=== PATIENT | male | born 1965 | race Caucasian/White ===

== ENCOUNTER 2017-02-12 15:26 | Inpatient (IN) | payer MEDICAID ==
[2017-02-12 15:26] VITALS: BMI 30.4
--- NOTE | 2017-02-12 16:22 | C.PDOC ---
History Of Present Illness 51M c/o depression and SI for the last week. he reports plan to either "hang myself" or "take pills." he says he has attempted OD before with xanax. he also sniffs heroin daily for last 10 years. denies etoh. denies any other complaints. Time Seen by Provider: 02/12/17 16:11 Chief Complaint (Nursing): Psychiatric Evaluation Past Medical History Vital Signs: Last Vital Signs Temp 98.3 F 02/13/17 07:38 Pulse 60 02/13/17 15:33 Resp 18 02/13/17 07:38 BP 110/70 02/13/17 15:33 Pulse Ox 98 02/12/17 18:58 - Medical History PMH: Anxiety, Depression Family History: States: Unknown Family Hx - Social History Hx Tobacco Use: Yes Hx Alcohol Use: No Hx Substance Use: Yes - Immunization History Hx Tetanus Toxoid Vaccination: No Hx Influenza Vaccination: No Hx Pneumococcal Vaccination: No Review Of Systems Except As Marked, All Systems Reviewed And Found Negative. Constitutional: Negative for: Fever, Chills Eyes: Negative for: Vision Change Cardiovascular: Negative for: Chest Pain Respiratory: Negative for: Cough, Shortness of Breath Gastrointestinal: Negative for: Nausea, Vomiting, Abdominal Pain, Diarrhea Neurological: Negative for: Weakness, Numbness, Altered Mental Status, Headache Psych: Positive for: Depression, Suicidal ideation Physical Exam - Physical Exam Appears: Non-toxic, No Acute Distress Skin: Warm, Dry Head: Atraumatic Nose: No Epistaxis Oral Mucosa: Moist Tongue: No Swelling Neck: Normal ROM Cardiovascular: Rhythm Regular Respiratory: No Decreased Breath Sounds, No Accessory Muscle Use Gastrointestinal/Abdominal: Soft, No Tenderness Neurological/Psych: Oriented x3, Other (no focal deficits) ED Course And Treatment - Laboratory Results Result Diagrams: 02/12/17 16:44 02/12/17 17:10 ECG: Interpreted By Me, Viewed By Me ECG Rhythm: Sinus Bradycardia ECG Interpretation: No Acute Changes Rate From EC O2 Sat by Pulse Oximetry: 95 Disposition - Disposition Disposition: HOSPITALIZED Disposition Time: 18:12 Condition: STABLE - Clinical Impression Clinical Impression: Depressive disorder, Severe opioid dependence
[2017-02-12 17:01] LABS: BASO # 0.1 K/uL (0.0-0.2); BASO % 0.7 % (0.0-2.0); EOS # 0.1 K/uL (0.0-0.7); EOS % 1.4 % (0.0-4.0); HEMATOCRIT 41.2 % (35.0-51.0); LYMPH % 19.5 % (20.0-40.0); MEAN CELL VOLUME 90.2 fL (80.0-94.0); MEAN CORPUSCULAR HEMOGLOBIN 29.5 pg (27.0-31.0); MEAN CORPUSCULAR HGB CONC 32.7 g/dL (33.0-37.0); MEAN PLATELET VOLUME 7.1 fL (7.2-11.7); MONO # 0.5 K/uL (0.0-0.8); MONO % 5.3 % (0.0-10.0); RED CELL DISTRIBUTION WIDTH 13.5 % (11.5-14.5); WHITE BLOOD COUNT 10.1 K/uL (4.8-10.8)
[2017-02-12 17:03] LABS: CHLORIDE 97 mmol/L (98-107)
[2017-02-12 17:04] LABS: POTASSIUM 3.9 mmol/L (3.6-5.2); SODIUM 134 mmol/L (132-148)
[2017-02-12 17:06] LABS: BILIRUBIN,TOTAL 0.4 mg/dL (0.2-1.3); CARBON DIOXIDE 24 mmol/L (22-30); GFR AFRICAN-AMERICAN > 60
[2017-02-12 17:07] LABS: ALB/GLOB RATIO 1.3 (1.0-2.1); ALCOHOL SERUM < 10 mg/dl (0-10); ALKALINE PHOSPHATASE 67 U/L (38-126); ALT/SGPT 25 U/L (21-72); AST/SGOT 26 U/L (17-59); BLOOD UREA NITROGEN 14 mg/dL (9-20); CALCIUM 8.5 mg/dl (8.6-10.4); GLUCOSE,RANDOM 96 mg/dL (75-110); TOTAL PROTEIN 6.7 g/dL (6.3-8.3)
[2017-02-12 17:35] LABS: RBC URINE 12 /hpf (0-3); URINE BACTERIA RARE (<OCC); URINE BILIRUBIN NEGATIVE (NEGATIVE); URINE BLOOD 1+ (NEGATIVE); URINE COLOR Yellow (YELLOW); URINE GLUCOSE (UA) NORMAL (Normal); URINE KETONE NEGATIVE (NEGATIVE); URINE LEUKOCYTE ESTERASE NEG Leu/uL (Negative); URINE PROTEIN NEGATIVE (NEGATIVE); WBC URINE 1 /hpf (0-5)
[2017-02-12] MEDS ORDERED: Aluminum Hydroxide/Magnesium Hydroxide Susp (30 mL) PO PRN (19:38)
[2017-02-13 21:05] VITALS: O2SAT 95
[2017-02-14] MEDS: Hydrocortisone 1% Cream (30 GM) TOP SCH ×2 (17:35→18:45)
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
--- NOTE | 2017-02-15 02:33 | PCM.PYCHPN ---
Psychiatric Progress Note - Psychiatric Progress Note Patient Chief Complaint: I AM DEPRESSED AND I WANT TO STOP USING Problems Identified/Issues Discussed: PAWS ADHERENCE TO MEDS AND AFTERCARE Medical Problems: NOTHING ACUTE Diagnostic Results: REVIEWED DSM 5 Symptoms Update: HOPELESSNESS HELPLESSNESS Medication Change: Yes (VALIUM TAPER) Medical Record Reviewed: Yes Mental Status Examination - Cognitive Function Orientation: Person, Place, Situation, Time Memory: Intact Attention: WNL Concentration: WNL Association: WNL Fund of Knowledge: WNL - Mood Mood: Anxious - Affect Affect: Constricted - Speech Speech: Appropriate - Formal Thought Process Formal Thought Process: No Impairment - Suicidal Ideation Suicidal Ideation: No - Homicidal Ideation Homicidal Ideation: No Goal/Treatment Plan - Goal/Treatment Plan Progress Toward Problem(s) and Goals/Treatment Plan: MAJOR DEPRESSIVE DISORDER OPIATE USE DISORDER OPIATE WITHDRAWAL SEDATIVE-HYPNOTIC USE DISORDER SEDATIVE HYPNOTIC WITHDRAWAL MDD ZOLOFT CBT AR GROUPS SUPPORTIVE PSYCHOTHERAPY OPIATE USE DISORDER CBT AR PSYCHOEDUCATION OPIATE WITHDRAWAL METHADONE SEDATIVE HYPNOTIC USE DISORDER CBT AR SUPPORTIVE PSYCHOTHERAPY SEDATIVE-HYPNOTIC WITHDRAWAL VALIUM Estimated Date of D/C: 02/20/17 - Smoking Cessation Smoking Cessation Initiated: No
[2017-02-15] MEDS: Hydrocortisone 1% Cream (30 GM) TOP SCH ×2 (10:31→17:05)
--- NOTE | 2017-02-15 23:08 | PCM.PYCHPN ---
Psychiatric Progress Note - Psychiatric Progress Note Patient seen today, length of contact: 16 min Patient Chief Complaint: "not well" Problems Identified/Issues Discussed: The patient is seen, chart reviewed and case discussed. Support and psychoeducation given ID used and he agreed to attend either a rehabilitation or methadone maintenance program. Treatment plan discussed. He denies feeling suicidal but feels depressed and irate. Anxiety is also an issue Anxiety management discussed. Medications discussed and will complete Valium detox which was probably not as needed. Medication Change: Yes Medical Record Reviewed: Yes Mental Status Examination - Cognitive Function Orientation: Person, Place, Situation, Time Memory: Intact Attention: WNL Concentration: WNL Association: WNL Fund of Knowledge: WNL - Mood Mood: Anxious - Affect Affect: Constricted - Speech Speech: Appropriate - Formal Thought Process Formal Thought Process: No Impairment - Suicidal Ideation Suicidal Ideation: No - Homicidal Ideation Homicidal Ideation: No Goal/Treatment Plan - Goal/Treatment Plan Need for Continued Stay: Discharge may exacerbated symptoms, Severe functional impairment Progress Toward Problem(s) and Goals/Treatment Plan: Refer to methadone maintenance or rehabilitation Continue current medications Support and psychoeducation Attend groups and activities Symptom management, i.e. anxiety and depression Is needed medications Estimated Date of D/C: 02/19/17 - Smoking Cessation Smoking Cessation Initiated: Yes
[2017-02-16] MEDS: Hydrocortisone 1% Cream (30 GM) TOP SCH ×2 (10:02→18:10)
--- NOTE | 2017-02-16 13:28 | PCM.PYCHPN ---
Psychiatric Progress Note - Psychiatric Progress Note Patient seen today, length of contact: 16 min Patient Chief Complaint: "Anxious" Problems Identified/Issues Discussed: The patient is seen, chart reviewed and case discussed. Support and psychoeducation given [facility] used again He is worried that he has no ID, except for shelter ID, and maybe [facility] will take him as he had been there before. Not suicidal Wants to leave tomorrow and attend on Wednesday, fears he may relapse if he stay off on Medication Change: Yes (valium is ending) Medical Record Reviewed: Yes Mental Status Examination - Cognitive Function Orientation: Person, Place, Situation, Time Memory: Intact Attention: WNL Concentration: WNL Association: WNL Fund of Knowledge: WNL - Mood Mood: Anxious - Affect Affect: Constricted - Speech Speech: Appropriate - Formal Thought Process Formal Thought Process: No Impairment - Suicidal Ideation Suicidal Ideation: No - Homicidal Ideation Homicidal Ideation: No Goal/Treatment Plan - Goal/Treatment Plan Need for Continued Stay: Discharge may exacerbated symptoms, Severe functional impairment Progress Toward Problem(s) and Goals/Treatment Plan: Refer to methadone maintenance at [facility] Continue current medications but increase zoloft Support and psychoeducation Attend groups and activities Symptom management, i.e. anxiety and depression As needed medications Estimated Date of D/C: 02/18/17 - Smoking Cessation Smoking Cessation Initiated: Yes
[2017-02-16 14:41] VITALS: RESP 20
[2017-02-17] MEDS: Hydrocortisone 1% Cream (30 GM) TOP SCH ×2 (10:35→17:43)
--- NOTE | 2017-02-17 12:11 | PCM.PYCHPN ---
Psychiatric Progress Note - Psychiatric Progress Note Patient seen today, length of contact: 15 min Patient Chief Complaint: "I still have anxiety" Problems Identified/Issues Discussed: The patient is seen, chart reviewed and case discussed. IA, and supportive tx provided Improving but has anxiety - Mgt discussed After care discussed No SEs from meds Medication Change: Yes (valium is ending) Medical Record Reviewed: Yes Mental Status Examination - Cognitive Function Orientation: Person, Place, Situation, Time Memory: Intact Attention: WNL Concentration: WNL Association: WNL Fund of Knowledge: WNL - Mood Mood: Anxious - Affect Affect: Constricted - Speech Speech: Appropriate - Formal Thought Process Formal Thought Process: No Impairment - Suicidal Ideation Suicidal Ideation: No - Homicidal Ideation Homicidal Ideation: No Goal/Treatment Plan - Goal/Treatment Plan Need for Continued Stay: Discharge may exacerbated symptoms, Severe functional impairment Progress Toward Problem(s) and Goals/Treatment Plan: Refer to methadone maintenance at [facility] Continue current medications but increase zoloft to 100 mg Support and psychoeducation Attend groups and activities Symptom management, i.e. anxiety and depression As needed medications Estimated Date of D/C: 02/18/17
[2017-02-18 09:14] VITALS: BP 131/83; PULSE 60; TEMP 97.2
[2017-02-18] MEDS: Hydrocortisone 1% Cream (30 GM) TOP SCH (09:36)
--- NOTE | 2017-02-18 09:52 | PCM.PYCHDC ---
Mental Status Examination - Mental Status Examination Orientation: Person, Place, Situation, Time Memory: Intact Mood: Anxious Affect: Constricted Speech: Appropriate Attention: WNL Concentration: WNL Association: WNL Fund of Knowledge: WNL Formal Thought Process: No Impairment Suicidal Ideation: No Current Homicidal Ideation?: No Discharge Summary - Discharge Note Reason for Hospitalization: Depression, and heroin abuse Consultations:: List each consultation separately and include: 1. Reason for request. 2. Findings. 3. Follow-up Summary of Hospital Course include:: 1. Description of specific treatment plan utilized for patients during their course of treatmen. 2. Summarize the time- course for resolution of acute symptoms and/or regressed behaviors. 3. Describe issues identified and worked on during hospitalization. 4. Describe medication utilized. 5. Describe medical problems identified and treated. 6. Reassessment of suicide risk Summary of Hospital Course: Hospital course: The pt was admitted and started on treatment with psychotherapy, support, psychoeducation and medications. AK and CBT used. The pt attended groups and activities, as well as milieu therapy. All the risks and benefits of medications are discussed and the patient understood and agreed. After care discussed with the patient. he had lost his ID but did an intake at [facility] prior to that so he will try there first. If not [facility] He was anxious and med-seeking, somewhat motivated (AK used) and isolative. - Final Diagnosis (DSM 5) Condition upon Discharge: STABLE DSM 5: Major depression Opioid withdrawal Opioid use severe Disposition: HOME/ ROUTINE Follow-up Treatment Plan: Continue below medications after discharge. Follow after care plan as discussed at [facility] MMTP - Back up: [facility] IOP and NA Use relapse prevention skills Return to ER or call 911 if suicidal, homicidal or symptoms relapse. Stay away from stress, alcohol and drugs. Prescriptions/Medication Reconciliation: Gabapentin [Neurontin] 300 mg PO TID #90 cap Sertraline [Zoloft] 100 mg PO DAILY #30 tab - Smoking Cessation Smoking Cessation Medication prescribed: No - Antipsychotic Medications Pt discharged on 2 or more routine antipsychotic medications: No
--- NOTE | 2017-02-20 06:37 | CARD ---
APPROVED REPORT EKG Measurement Heart [id number] IN [id number] <Conclusion> Sinus bradycardia Otherwise normal ECG
== END 2017-02-18 12:45 | disposition home or self-care (01) | DRG 745 ==
LOC: C.ER 15:26 → C.5E 18:12
PROVIDERS: ADMIT Psychiatry & Neurology Psychiatry; ATTEND Psychiatry & Neurology Psychiatry
PROC: GZ56ZZZ Individual Psychotherapy, Supportive (ICD-10-PCS; principal; 2017-02-12)
PROC: HZ52ZZZ Individual Psychotherapy for Substance Abuse Treatment, Cognitive-Behavioral (ICD-10-PCS; 2017-02-12)
PROC: HZ56ZZZ Individual Psychotherapy for Substance Abuse Treatment, Psychoeducation (ICD-10-PCS; 2017-02-12)
PROC: HZ2ZZZZ Detoxification Services for Substance Abuse Treatment (ICD-10-PCS; 2017-02-12)
DX: F11.23 Opioid dependence with withdrawal (principal); F32.9 Major depressive disorder, single episode, unspecified; F41.9 Anxiety disorder, unspecified

== ENCOUNTER 2017-08-09 12:37 | Inpatient (IN) | payer MEDICAID ==
[2017-08-09 12:37] VITALS: BMI 28.1
[2017-08-09 13:43] LABS: BASO % 0.4 % (0.0-2.0); EOS # 0.2 K/uL (0.0-0.7); HEMATOCRIT 41.1 % (35.0-51.0); LYMPH # 1.1 K/uL (1.0-4.3); MEAN CELL VOLUME 91.7 fL (80.0-94.0); MEAN CORPUSCULAR HEMOGLOBIN 30.7 pg (27.0-31.0); MEAN CORPUSCULAR HGB CONC 33.5 g/dL (33.0-37.0); MONO # 0.4 K/uL (0.0-0.8); MONO % 4.6 % (0.0-10.0); RED CELL DISTRIBUTION WIDTH 13.5 % (11.5-14.5); WHITE BLOOD COUNT 9.6 K/uL (4.8-10.8)
[2017-08-09 13:53] LABS: RBC URINE 2 /hpf (0-3); URINE BILIRUBIN NEGATIVE (NEGATIVE); URINE BLOOD 2+ (NEGATIVE); URINE COLOR Yellow (YELLOW); URINE GLUCOSE (UA) NORMAL (Normal); URINE KETONE NEGATIVE (NEGATIVE); URINE LEUKOCYTE ESTERASE 1+ Leu/uL (Negative); URINE PROTEIN NEGATIVE (NEGATIVE); URINE UROBILINOGEN NORMAL mg/dL (0.2-1.0); WBC URINE 2 /hpf (0-5)
[2017-08-09 14:00] LABS: ALB/GLOB RATIO 1.3 (1.0-2.1); ALCOHOL SERUM < 10 mg/dl (0-10); ALKALINE PHOSPHATASE 69 U/L (38-126); ALT/SGPT 25 U/L (21-72); AST/SGOT 22 U/L (17-59); BILIRUBIN,TOTAL 0.7 mg/dL (0.2-1.3); BLOOD UREA NITROGEN 18 mg/dL (9-20); CALCIUM 9.3 mg/dl (8.6-10.4); CARBON DIOXIDE 25 mmol/L (22-30); CHLORIDE 102 mmol/L (98-107); GFR AFRICAN-AMERICAN > 60; GLUCOSE,RANDOM 163 mg/dL (75-110); POTASSIUM 3.9 mmol/L (3.6-5.2); SODIUM 139 mmol/L (132-148); TOTAL PROTEIN 6.9 g/dL (6.3-8.3)
--- NOTE | 2017-08-09 15:16 | C.PDOC ---
History Of Present Illness 51 y/o male presents to ED with complaints of feeling depressed and suicidal ideation. Patient has history of seizures with withdrawal. Admits to heroin and cocaine use. No IV drug use. No other complaints at this time. Time Seen by Provider: 08/09/17 13:10 Chief Complaint (Nursing): Psychiatric Evaluation History Per: Patient History/Exam Limitations: no limitations Onset/Duration Of Symptoms: Days Current Symptoms Are (Timing): Still Present Suicide/Self Injury Attempted (Context): None Past Medical History Reviewed: Historical Data, Nursing Documentation, Vital Signs Vital Signs: Last Vital Signs Temp 98.1 F 08/09/17 14:55 Pulse 61 08/09/17 14:55 Resp 18 08/09/17 14:55 BP 112/75 08/09/17 14:55 Pulse Ox 99 08/09/17 15:22 - Medical History PMH: Anxiety, Depression Surgical History: No Surg Hx - [facility] Procedures DETOXIFICATION SERVICES FOR SUBSTANCE ABUSE TREATMENT (02/12/17) INDIV PSYCHOTHERAPY FOR SUBSTANCE ABUSE, COGNITIV BEHAVIORAL (02/12/17) INDIV PSYCHOTHERAPY FOR SUBSTANCE ABUSE, PSYCHOEDUCATION (02/12/17) INDIVIDUAL PSYCHOTHERAPY, SUPPORTIVE (02/12/17) Family History: States: Unknown Family Hx - Social History Hx Tobacco Use: Yes Hx Alcohol Use: Yes Hx Substance Use: Yes - Immunization History Hx Tetanus Toxoid Vaccination: No Hx Influenza Vaccination: No Hx Pneumococcal Vaccination: No Review Of Systems Except As Marked, All Systems Reviewed And Found Negative. Constitutional: Negative for: Fever, Chills Cardiovascular: Negative for: Chest Pain Respiratory: Negative for: Shortness of Breath Gastrointestinal: Negative for: Nausea, Vomiting Psych: Positive for: Depression, Suicidal ideation. Negative for: Anxiety Physical Exam - Physical Exam Appears: Non-toxic, No Acute Distress Skin: Normal Color Head: Atraumatic Eye(s): bilateral: Normal Inspection, EOMI Oral Mucosa: Moist Neck: Normal ROM, Supple Chest: Symmetrical Cardiovascular: Rhythm Regular Respiratory: Normal Breath Sounds, No Rales, No Rhonchi Gastrointestinal/Abdominal: Soft, No Tenderness Neurological/Psych: Oriented x3, Normal Speech ED Course And Treatment - Laboratory Results Result Diagrams: 08/09/17 13:32 08/09/17 13:32 O2 Sat by Pulse Oximetry: 99 (RA) Pulse Ox Interpretation: Normal Progress Note: Upon Crisis Evaluation, Patient will be admitted to [facility] for Opioid abuse and depression. Disposition - Disposition Disposition: HOSPITALIZED Disposition Time: 15:00 Condition: STABLE - Clinical Impression Clinical Impression: Depressive disorder, Drug abuse - PA / CLINICAL REVIEW NURSE / Resident Statement MD/DO has reviewed & agrees with the documentation as recorded. - Scribe Statement The provider has reviewed the documentation as recorded by the Lailaibandrea Woo All medical record entries made by the Mook were at my direction and personally dictated by me. I have reviewed the chart and agree that the record accurately reflects my personal performance of the history, physical exam, medical decision making, and the department course for this patient. I have also personally directed, reviewed, and agree with the discharge instructions and disposition.
[2017-08-09] MEDS ORDERED: Aluminum Hydroxide/Magnesium Hydroxide Susp (30 mL) PO PRN (15:48)
--- NOTE | 2017-08-09 18:23 | PCM.BM ---
<Sadaf Domingo - Last Filed: 08/09/17 18:20> Treatment Plan Problems - Problems identified on initial assessmt Depression Date Initiated: 08/09/17 Time Initiated: 17:00 Assessment reference: NA Status: Active Substance Abuse Date Initiated: 08/09/17 Time Initiated: 17:00 Assessment reference: NA Status: Active Treatment assets and liabiliti Patient Assests: adapts well, cooperative, ADL independent, physically healthy, negotiates basic needs, cognitively intact Patient Liabilities: poor support system, substance abuse (Opiates, Xanax) - Milieu Protocol Maintain good personal hygiene: every shift Encourage regular showers, every shift Remind patient to perform daily oral care, other Assist patient to perform ADL's (Self) Conduct patient checks and document Observation sheet: Q15 minutes (Safety) Maintain personal safety: every shift Educate patient to report safety concerns to staff, every shift Monitor environment for contraband/sharps Medication safety: Monitor for expected outcome, potential side effects: every shift, Assess barriers to learning: every shift, Assess readiness for medication education: every shift <Kitty Fountain - Last Filed: 08/11/17 11:34> - Diagnosis (1) Depressive disorder Status: Acute Interventions: 08/11/17 11:34 * Assess/adjust medications daily and /or as needed * See patient on an individual basis 7x/week to assess level of manic behaviors and stability * Discuss risks, benefits, side effects and alternatives of medications * (2) Opioid use disorder, severe, dependence Status: Acute Interventions: 08/11/17 11:34 * Assess 7x/week regarding severity of withdrawal * Educate regarding risks, benefits, side effects and alternatives of medications * Use Motivational Interviewing for abstinence * Use CBT for relapse prevention * Medication management for withdrawal symptoms * Encourage medication assisted treatment * <Nadira Mckeon - Last Filed: 08/11/17 11:39> Family Contact Family involvement: Famliy/SO not involved - Goals for Treatment Patient goals for treatment: "I might want to go to rehab, not sure." Discharge/Continuing Care - Education Needs Education Needs: Patient Medication, Patient Coping Skills, Patient Placement options, Patient Community resources - Discharge Discharge Criteria: Tolerates medication w/o severe side effects, No longer exhibiting s/s of withdrawal Discharge to:: Substance Abuse Rehab - Treatment Team Participation Discussed with Family/SO: No Was Patient/Family/SO present at Treatment Team Meeting: Yes
--- NOTE | 2017-08-10 10:05 | PCM.PSYCH ---
Initial Psychiatric Evaluation - Initial Psychiatric Evaluation Type of Admission: Voluntary Legal Status: Capacity Chief Complaint (in patient's own words): I was feeling depressed and suicidal History of Present Illness and Precipitating Events: Pt is a 51 years old male who is currently homeless, and unemployed presented in the ED complaining of mood disturbances, daily living problems and suicidal ideations. Patient denies any history of any inpatient psychiatric hospitalizations and denies any history of follow-up with any psychiatrist. Patient reports a long history of abusing opiate and benzodiazepine. Patient reports history of sniffing more than 15 bags of heroin and abusing 2-4 mg of Xanax on a daily. Yesterday he abused 15 bags of heroin along with 2 mg of Xanax, became increasingly depressed and developed suicidal ideation, so came to the hospital to get help. Patient reports of depressed, and irritable mood. Reports feelings of hopelessness and helplessness and poor appetite. However he denies any auditory hallucinations, visual hallucinations or any delusions. Patient also reports withdrawal symptoms including nausea, vomiting, abdominal pain. He also reports auditory hallucinations, that someone is calling him names and persecutory delusions that someone is following him. Past medical history none reported Current Medications: Active Medications Generic Name Dose Route Start Last Admin Trade Name Freq PRN Reason Stop Dose Admin Acetaminophen 650 mg 08/09/17 15:45 Tylenol 325mg Tab PO Q6 PRN Fever >100.4 F Al Hydrox/Mg Hydrox/Simethicone 30 ml 08/09/17 15:48 Maalox 30 Ml PO TID PRN Indigestion / Heartburn Clonidine HCl 0.1 mg 08/09/17 15:48 Catapres PO Q8 PRN COWS Score More or Equal to 5 Dicyclomine HCl 10 mg 08/09/17 15:45 Bentyl PO Q6 PRN Muscle spasm Gabapentin 300 mg 08/09/17 18:00 08/09/17 17:44 Neurontin PO Not Given TID ROGER Loperamide HCl 2 mg 08/09/17 15:48 Imodium PO Q8 PRN Diarrhea Methadone HCl 15 mg 08/10/17 09:30 Methadone PO 08/14/17 09:29 Q24H ROGER Taper Ondansetron HCl 4 mg 08/09/17 15:48 Zofran Tab PO Q8 PRN Nausea/Vomiting Pneumococcal Polyvalent Vaccine 0.5 ml 08/12/17 10:00 Pneumovax 23 Vaccine IM 08/12/17 10:01 .ONCE ONE Sertraline HCl 25 mg 08/10/17 10:00 Zoloft PO DAILY ROGER Trazodone HCl 50 mg 08/09/17 22:00 08/09/17 22:50 Desyrel PO Not Given HS ROGER Trazodone HCl 50 mg 08/09/17 22:29 Desyrel PO HS PRN Insomnia Past Psychiatric History - Past Psychiatric History Previous Treatment History: Inpatient Pertinent Medical Hx (Current Medical&Sleep Prob, Allergies): Allergies Allergy/AdvReac Type Severity Reaction Status Date / Time No Known Allergies Allergy Verified 08/09/17 13:02 Gabapentin [Neurontin] 300 mg PO TID #90 cap 02/18/17 Sertraline [Zoloft] 100 mg PO DAILY #30 tab 02/18/17 Review of Systems - Review of Systems All systems: reviewed and no additional remarkable complaints except - Psychiatric Psychiatric: Anxiety, Auditory Hallucinations, Depression, Hopelessness, Irritability, Suicidal Ideation Mental Status Examination - Personal Presentation Personal Presentation: Looks stated age - Affect Affect: Constricted, Depressed - Motor Activity Motor Activity: Calm - Reliability in Providing Information Reliability in Providing Information: Good - Speech Speech: Organized - Mood Mood: Depressed, Anxious - Formal Thought Process Formal Thought Process: Hallucinations, Delusions - Hallucinations/Delusions Hallucinations: Auditory Delusions: Persecution - Obsessions/Compulsions Obsessions: No Compulsions: No - Cognitive Functions Orientation: Person, Place, Situation, Time Sensorium: Alert Attention/Concentration: Attentive Abstract Thinking: [place] Estimate of Intelligence: Below average Judgement: Imparied, as evidence by: Poor judgement, Imparied, as evidence by: Lack of insight into illness - Risk Risk: Suicidal, Diminished functioning - Limitations Limitations: Living alone DSM 5 DX - DSM 5 DSM 5 Diagnosis: Major depressive disorder recurrent severe with psychotic features -Opioid use d/o-severe -Opioid withdrawal -Cocaine use disorder moderate - Recommended/Plan of Treatment Treatment Recommendations and Plan of Treatment: Major depressive disorder recurrent severe with psychotic features Zoloft 25 gm PO Q Daily Trazodone 50 mg pO QHS Neurontin 300 mg po TID Groups and individual treatment CBT -Opioid use d/o-severe -Opioid withdrawal CBT for relapse prevention Psychoeducation Supportive therapy, individual therapy Use [place] for abstinence Methadone taper Refer to after care. -Cocaine use d/o-moderate CBT for relapse prevention Psychoeducation Supportive therapy, individual therapy Use [place] for abstinence - Smoking Cessation Smoking Cessation Initiated: No
--- NOTE | 2017-08-11 11:01 | PCM.PYCHPN ---
Psychiatric Progress Note - Psychiatric Progress Note Patient seen today, length of contact: 15 min Patient Chief Complaint: I am feeling depressed. Problems Identified/Issues Discussed: Patient seen and evaluated, chart reviewed and discussed with the nurse. Patient remained isolated, confined and withdrawn. Patient reports withdrawal symptoms including nausea, headaches, cramps and sweating. He reports depressed mood and feelings of hopelessness and poor sleep. He is taking medication and denies any side effects. He is requesting of a higher dose of methadone. Supportive therapy and psychoeducation were given. Medication Change: Yes (increase zoloft) Medical Record Reviewed: Yes Mental Status Examination - Cognitive Function Orientation: Person, Place, Situation, Time Memory: Intact Attention: WNL Concentration: Poor Association: WNL Fund of Knowledge: Poor - Mood Mood: Depressed, Anxious - Affect Affect: Constricted, Depressed - Speech Speech: Soft - Formal Thought Process Formal Thought Process: No Impairment - Suicidal Ideation Suicidal Ideation: No - Homicidal Ideation Homicidal Ideation: No Goal/Treatment Plan - Goal/Treatment Plan Need for Continued Stay: Discharge may exacerbated symptoms, Severe functional impairment Progress Toward Problem(s) and Goals/Treatment Plan: Major depressive disorder recurrent severe without psychotic features Zoloft 50 gm PO Q Daily Trazodone 50 mg pO QHS Neurontin 300 mg po TID Groups and individual treatment CBT -Opioid use d/o-severe -Opioid withdrawal CBT for relapse prevention Psychoeducation Supportive therapy, individual therapy Use [place] for abstinence Methadone taper Refer to after care. -Cocaine use d/o-moderate CBT for relapse prevention Psychoeducation Supportive therapy, individual therapy Use [place] for abstinence - Smoking Cessation Smoking Cessation Initiated: No
[2017-08-11 16:17] VITALS: O2SAT 98
[2017-08-11] MEDS: Divalproex 250 mg DR Tab PO SCH (17:47)
[2017-08-12] MEDS: Divalproex 250 mg DR Tab PO SCH (09:53)
[2017-08-12] MEDS ORDERED: Pneumococcal 23-Valent Vaccine IM ONE (10:00)
--- NOTE | 2017-08-12 15:33 | PCM.PYCHPN ---
Psychiatric Progress Note - Psychiatric Progress Note Patient seen today, length of contact: 15 min Patient Chief Complaint: I w=am still feeling depressed Problems Identified/Issues Discussed: Patient seen and evaluated, chart reviewed and discussed with the nurse. Patient reports withdrawal symptoms including joint pains, headaches, abdominal cramps and sweating. He reports depressed mood and somewhat improvement in the feelings of hopelessness. He is taking medication and denies any side effects. He needs more time for stabilization. Supportive therapy and psychoeducation were given. Medication Change: Yes (start Seroquel, increase Zoloft) Medical Record Reviewed: Yes Mental Status Examination - Cognitive Function Orientation: Person, Place, Situation, Time Memory: Intact Attention: WNL Concentration: Poor Association: WNL Fund of Knowledge: Poor - Mood Mood: Depressed, Anxious - Affect Affect: Constricted, Depressed - Speech Speech: Soft - Formal Thought Process Formal Thought Process: Delusions - Suicidal Ideation Suicidal Ideation: No - Homicidal Ideation Homicidal Ideation: No Goal/Treatment Plan - Goal/Treatment Plan Need for Continued Stay: Discharge may exacerbated symptoms, Severe functional impairment Progress Toward Problem(s) and Goals/Treatment Plan: Major depressive disorder recurrent severe with psychotic features Zoloft 100 gm PO Q Daily d/c Trazodone 50 mg pO QHS Neurontin 300 mg po TID Seroquel 100 mg by mouth daily at bedtime Discontinue Depakote Groups and individual treatment CBT -Opioid use d/o-severe -Opioid withdrawal CBT for relapse prevention Psychoeducation Supportive therapy, individual therapy Use [place] for abstinence Methadone taper Refer to after care. -Cocaine use d/o-moderate CBT for relapse prevention Psychoeducation Supportive therapy, individual therapy Use [place] for abstinence - Smoking Cessation Smoking Cessation Initiated: No
--- NOTE | 2017-08-13 10:55 | PCM.PYCHPN ---
Psychiatric Progress Note - Psychiatric Progress Note Patient seen today, length of contact: 15 min Patient Chief Complaint: I w=am still feeling depressed Problems Identified/Issues Discussed: Pt. is seen, chart reviewed, case discussed with staff. Pt. reports some improvement in the withdrawal symptoms but still reports bone pain, muscle pain , and abdominal cramps. He reports some improvement in his depressed mood and reports medications are working. Symptoms are improving, but needs more time to stabilize. No SEs from medications, risks discussed. After care discussed. Medication Change: Yes (start Seroquel, increase Zoloft) Medical Record Reviewed: Yes Mental Status Examination - Cognitive Function Orientation: Person, Place, Situation, Time Memory: Intact Attention: WNL Concentration: Poor Association: WNL Fund of Knowledge: Poor - Mood Mood: Depressed, Anxious - Affect Affect: Constricted, Depressed - Speech Speech: Soft - Formal Thought Process Formal Thought Process: Delusions - Suicidal Ideation Suicidal Ideation: No - Homicidal Ideation Homicidal Ideation: No Goal/Treatment Plan - Goal/Treatment Plan Need for Continued Stay: Discharge may exacerbated symptoms, Severe functional impairment Progress Toward Problem(s) and Goals/Treatment Plan: Major depressive disorder recurrent severe with psychotic features Zoloft 100 gm PO Q Daily d/c Trazodone 50 mg pO QHS Neurontin 300 mg po TID Seroquel 100 mg by mouth daily at bedtime Discontinue Depakote Groups and individual treatment CBT -Opioid use d/o-severe -Opioid withdrawal CBT for relapse prevention Psychoeducation Supportive therapy, individual therapy Use [place] for abstinence Methadone taper Refer to after care. -Cocaine use d/o-moderate CBT for relapse prevention Psychoeducation Supportive therapy, individual therapy Use [place] for abstinence
--- NOTE | 2017-08-14 17:34 | PCM.PYCHPN ---
Psychiatric Progress Note - Psychiatric Progress Note Patient seen today, length of contact: 15 min Patient Chief Complaint: I'm feeling anxiety. Can I get extra dose of methadone. Problems Identified/Issues Discussed: Patient seen. Chart reviewed. Case discussed with the staff. Issues related to illness and treatment were discussed with the patient. Reported compliant with treatment with no adverse affects. Tolerating treatment very well. Reported he is feeling anxious after finishing his detox for opiates and methadone and is requesting for extra dose of methadone. Education provided. Offered Atarax. Patient agreed. At the time of evaluation, patient was awake alert oriented 3, had no delusions , no auditory or visual hallucinations, no suicidal ideations or homicidal ideations, Medical Problems: None reported Diagnostic Results: Reviewed DSM 5 Symptoms Update: Improving with treatment Medication Change: No Medical Record Reviewed: Yes Mental Status Examination - Cognitive Function Orientation: Person, Place, Situation, Time Memory: Intact Attention: WNL Concentration: WNL Association: WNL Fund of Knowledge: WNL Decription of patient's judgement and insights: Fair - Mood Mood: Anxious - Affect Affect: Other (Appropriate) - Speech Speech: Soft - Formal Thought Process Formal Thought Process: No Impairment - Suicidal Ideation Suicidal Ideation: No - Homicidal Ideation Homicidal Ideation: No Goal/Treatment Plan - Goal/Treatment Plan Need for Continued Stay: Remain at risks for inpatient hospitalization, Discharge may exacerbated symptoms, Severe functional impairment Progress Toward Problem(s) and Goals/Treatment Plan: Patient education Supportive therapy Continue treatment as before Patient needs more time for stabilization Estimated Date of D/C: 08/16/17 - Smoking Cessation Smoking Cessation Initiated: No
[2017-08-14] MEDS: Vitamins A & D Oint UD Foilpak TOP SCH (22:32)
[2017-08-15] MEDS: Vitamins A & D Oint UD Foilpak TOP SCH ×2 (09:33→21:27)
[2017-08-15 13:10] VITALS: RESP 20; TEMP 97.5
--- NOTE | 2017-08-15 14:50 | PCM.PYCHPN ---
Psychiatric Progress Note - Psychiatric Progress Note Patient seen today, length of contact: 15 min Patient Chief Complaint: I'm feeling much better. I want to test myself for hepatitis C and HIV. Problems Identified/Issues Discussed: Patient seen. Chart reviewed. Case discussed with the staff. Issues related to illness and treatment were discussed with the patient. Reported compliant with treatment with no adverse affects. Tolerating treatment very well. Reported feeling much better, more stable, better sleep. Requesting for hepatitis C and HIV testing. At the time of evaluation, patient was awake alert oriented 3, had no delusions , no auditory or visual hallucinations, no suicidal ideations or homicidal ideations, Medical Problems: None reported Diagnostic Results: Reviewed DSM 5 Symptoms Update: Improving with treatment Medication Change: No Medical Record Reviewed: Yes Mental Status Examination - Cognitive Function Orientation: Person, Place, Situation, Time Memory: Intact Attention: WNL Concentration: WNL Association: WNL Fund of Knowledge: [facility] Decription of patient's judgement and insights: Fair - Mood Mood: Neutral - Affect Affect: Other (Appropriate) - Speech Speech: Soft - Formal Thought Process Formal Thought Process: No Impairment Psychotic Thoughts and Behaviors: None - Suicidal Ideation Suicidal Ideation: No - Homicidal Ideation Homicidal Ideation: No Goal/Treatment Plan - Goal/Treatment Plan Need for Continued Stay: Remain at risks for inpatient hospitalization, Discharge may exacerbated symptoms, Severe functional impairment Progress Toward Problem(s) and Goals/Treatment Plan: Patient education Supportive therapy Continue treatment as before Patient needs more time for stabilization Will order hepatitis C and HIV testing Estimated Date of D/C: 08/16/17 - Smoking Cessation Smoking Cessation Initiated: No
[2017-08-15 15:52] VITALS: BP 108/67; PULSE 61
[2017-08-16] MEDS: Vitamins A & D Oint UD Foilpak TOP SCH (09:39)
--- NOTE | 2017-08-16 09:45 | PCM.PYCHDC ---
Mental Status Examination - Mental Status Examination Orientation: Person, Place, Situation, Time Memory: Intact Mood: Neutral Affect: Other (Appropriate) Speech: Appropriate Attention: WNL Concentration: WNL Association: WNL Fund of Knowledge: WNL Formal Thought Process: No Impairment Suicidal Ideation: No Current Homicidal Ideation?: No Discharge Summary - Discharge Note Reason for Hospitalization: Pt presented to ED 08/09/17 for mood disturbances and SI Psychiatric History (includes Medical, Family, Personal Hx): Denies history of psych hospitalization and follow up Laboratory Data: Abnormal Lab Results 08/15/17 16:34 Hepatitis C Antibody Negative Consultations:: List each consultation separately and include: 1. Reason for request. 2. Findings. 3. Follow-up Summary of Hospital Course include:: 1. Description of specific treatment plan utilized for patients during their course of treatmen. 2. Summarize the time- course for resolution of acute symptoms and/or regressed behaviors. 3. Describe issues identified and worked on during hospitalization. 4. Describe medication utilized. 5. Describe medical problems identified and treated. 6. Reassessment of suicide risk Summary of Hospital Course: Pt was admitted and started on treatment with psychotherapy, support, psychoeducation and medications. CT and CBT used. Pt attended groups and activities as well as milieu therapy. All the risks and benefits of medications were discussed and pt understood and agreed. Pt improved with the treatment provided. After care discussed. Pt does not plan to attend rehab. Pt would like referral to [facility]. Pt does not currently see PMD and is advised to schedule appointment with clinic at [facility]. - Final Diagnosis (DSM 5) Condition upon Discharge: STABLE DSM 5: Major depressive disorder, recurrent, severe with psychotic features Opioid use disorder, severe Opioid withdrawal Cocaine use disorder, moderate Disposition: HOME/ ROUTINE Follow-up Treatment Plan: Continue below medications after discharge. Follow after care as discussed. Use relapse prevention skills. Return to ER or call 911 if suicidal, homicidal or symptoms relapse. Stay away from stress, alcohol and drugs. See primary doctor once a year. Prescriptions/Medication Reconciliation: ARIPiprazole [Abilify] 10 mg PO QPM #30 tab Gabapentin [Neurontin] 300 mg PO TID #90 cap QUEtiapine [Seroquel] 100 mg PO HS #30 tab Sertraline [Zoloft] 100 mg PO DAILY #30 tab traZODone [Desyrel] 100 mg PO HS PRN #30 tab PRN Reason: Insomnia - Smoking Cessation Smoking Cessation Medication prescribed: No - Antipsychotic Medications Pt discharged on 2 or more routine antipsychotic medications: No
== END 2017-08-16 11:10 | disposition home or self-care (01) | DRG 430 ==
LOC: C.ER 12:37 → C.5E 15:10
PROVIDERS: ADMIT Psychiatry & Neurology Psychiatry; ATTEND Psychiatry & Neurology Psychiatry
PROC: GZ3ZZZZ Medication Management (ICD-10-PCS; principal; 2017-08-09)
PROC: HZ59ZZZ Individual Psychotherapy for Substance Abuse Treatment, Supportive (ICD-10-PCS; 2017-08-09)
PROC: HZ46ZZZ Group Counseling for Substance Abuse Treatment, Psychoeducation (ICD-10-PCS; 2017-08-09)
PROC: HZ2ZZZZ Detoxification Services for Substance Abuse Treatment (ICD-10-PCS; 2017-08-09)
PROC: GZHZZZZ Group Psychotherapy (ICD-10-PCS; 2017-08-09)
PROC: GZ56ZZZ Individual Psychotherapy, Supportive (ICD-10-PCS; 2017-08-09)
DX: F33.3 Major depressive disorder, recurrent, severe with psychotic symptoms (principal); R45.851 Suicidal ideations; F11.23 Opioid dependence with withdrawal; F14.20 Cocaine dependence, uncomplicated; B19.20 Unspecified viral hepatitis C without hepatic coma; F17.210 Nicotine dependence, cigarettes, uncomplicated; F41.9 Anxiety disorder, unspecified; Z59.0 Homelessness

== ENCOUNTER 2019-03-06 19:15 | Inpatient (IN) | payer MEDICAID ==
[2019-03-06 19:15] VITALS: BMI 28.1
--- NOTE | 2019-03-06 20:05 | C.PDOC ---
History Of Present Illness 53 year old male presents to ED for psychiatric evaluations. Patient states that he has been feeling depressed and contemplated taking an entire bottle of xanax. Patient stopped taking his psych medication 6 months ago. Patient denies homicidal ideation. Time Seen by Provider: 03/06/19 20:05 Chief Complaint (Nursing): Psychiatric Evaluation History Per: Patient History/Exam Limitations: no limitations Onset/Duration Of Symptoms: Unknown Current Symptoms Are (Timing): Still Present Suicide/Self Injury Attempted (Context): None Modifying Factor(s): None Associated Symptoms: Suicidal Thoughts. denies: Other (homicidal ideation) Past Medical History Reviewed: Historical Data, Nursing Documentation, Vital Signs Vital Signs: Last Vital Signs Temp 98.5 F 03/06/19 19:41 Pulse 61 03/06/19 19:41 Resp 20 03/06/19 19:41 BP 100/68 03/06/19 19:41 Pulse Ox 97 03/06/19 19:41 - Medical History PMH: Anxiety, Depression Denies: Diabetes, Hepatitis, HIV, HTN, Chronic Kidney Disease, Seizures, Sexually Transmitted Disease Surgical History: No Surg Hx - [facility] Procedures DETOXIFICATION SERVICES FOR SUBSTANCE ABUSE TREATMENT (08/09/17) GROUP COLD TYPE COMPOSING MACHINE OPERATOR FOR SUBSTANCE ABUSE TREATMENT, PSYCHOEDUCATION (08/09/17) GROUP PSYCHOTHERAPY (08/09/17) INDIV PSYCHOTHERAPY FOR SUBSTANCE ABUSE TREATMENT, SUPPORT (08/09/17) INDIV PSYCHOTHERAPY FOR SUBSTANCE ABUSE, COGNITIV BEHAVIORAL (02/12/17) INDIV PSYCHOTHERAPY FOR SUBSTANCE ABUSE, PSYCHOEDUCATION (02/12/17) INDIVIDUAL PSYCHOTHERAPY, SUPPORTIVE (08/09/17) MEDICATION MANAGEMENT (08/09/17) Family History: States: Unknown Family Hx - Social History Hx Tobacco Use: Yes Hx Alcohol Use: Yes Hx Substance Use: Yes - Immunization History Hx Tetanus Toxoid Vaccination: No Hx Influenza Vaccination: No Hx Pneumococcal Vaccination: No Review Of Systems Constitutional: Negative for: Fever, Chills, Weakness Cardiovascular: Negative for: Chest Pain Respiratory: Negative for: Shortness of Breath Gastrointestinal: Negative for: Nausea, Vomiting, Abdominal Pain Neurological: Negative for: Weakness, Numbness, Dizziness Psych: Positive for: Suicidal ideation. Negative for: Other (homicidal ideation) Physical Exam - Physical Exam Appears: Non-toxic, No Acute Distress Skin: Warm, Dry Head: Normacephalic Eye(s): bilateral: Normal Inspection Oral Mucosa: Moist Neck: Trachea Midline, Supple Chest: Symmetrical Cardiovascular: Rhythm Regular Respiratory: No Rales, No Rhonchi, No Wheezing Gastrointestinal/Abdominal: No Tenderness, No Distention Extremity: Bilateral: Normal Color And Temperature Pulses: Left Dorsalis Pedis: Normal, Right Dorsalis Pedis: Normal Neurological/Psych: Oriented x3 Gait: Steady ED Course And Treatment - Laboratory Results Result Diagrams: 03/06/19 20:12 03/06/19 20:12 O2 Sat by Pulse Oximetry: 97 (in RA) Progress Note: Labs ordered with drug screen and UA for patient. Patient placed on 1:1 observation. Patient to be evaluated by crisis. Disposition Discussed With Dr.: Amanda Velazquez Comment: accepted the pt on his service and took over the care at 10:37PM Doctor Will See Patient In The: Hospital Counseled Patient/Family Regarding: Studies Performed, Diagnosis - Disposition Disposition: HOSPITALIZED Disposition Time: 20:05 Condition: FAIR Forms: [facility] ([employer]) - POA Present On Arrival: None - Clinical Impression Clinical Impression: Major depression, Opioid use disorder - Scribe Statement The provider has reviewed the documentation as recorded by the Scribe (Dolly Mcghee) All medical record entries made by the Scribe were at my direction and personally dictated by me. I have reviewed the chart and agree that the record accurately reflects my personal performance of the history, physical exam, medical decision making, and the department course for this patient. I have also personally directed, reviewed, and agree with the discharge instructions and disposition. Decision To Admit - Pt Status Changed To: Hospital Disposition Of: Inpatient - Admit Certification Admit to Inpatient:: intermittent right leg paresthisia - InPatient: Physician Admission Certification: I certify that this patient requires 2 or more midnights of care for the following reason:: intermittent right leg paresthisia - . Bed Request Type: Psychiatry Admitting Physician: Amanda Velazquez Patient Diagnosis: Major depression, Opioid use disorder
[2019-03-06 20:17] LABS: BASO # 0.1 K/uL (0.0-0.2); BASO % 0.6 % (0.0-2.0); EOS # 0.2 K/uL (0.0-0.7); EOS % 1.9 % (0.0-4.0); HEMOGLOBIN 13.8 g/dL (12.0-18.0); LYMPH # 1.9 K/uL (1.0-4.3); LYMPH % 23.4 % (20.0-40.0); MEAN CORPUSCULAR HEMOGLOBIN 31.3 pg (27.0-31.0); MEAN CORPUSCULAR HGB CONC 33.6 g/dL (33.0-37.0); MEAN PLATELET VOLUME 6.7 fL (7.2-11.7); MONO # 0.6 K/uL (0.0-0.8); MONO % 7.3 % (0.0-10.0); NEUT # 5.4 K/uL (1.8-7.0); NEUT % 66.8 % (50.0-75.0); RBC 4.42 Mil/uL (4.40-5.90); RED CELL DISTRIBUTION WIDTH 13.4 % (11.5-14.5)
[2019-03-06 20:38] LABS: ALB/GLOB RATIO 1.6 (1.0-2.1); ALBUMIN 4.2 g/dL (3.5-5.0); ALT/SGPT 15 U/L (21-72); AST/SGOT 31 U/L (17-59); BLOOD UREA NITROGEN 19 mg/dL (9-20); GFR NON-AFRICAN AMERICAN 49
[2019-03-06 20:56] LABS: BARBITURATES, UR NEGATIVE (NEGATIVE); BENZODIAZEPINES, UR NEGATIVE (NEGATIVE); PHENCYCLIDINE, UR NEGATIVE (NEGATIVE)
[2019-03-06 20:58] LABS: URINE BILIRUBIN NEGATIVE (NEGATIVE); URINE CLARITY Clear (Clear); URINE COLOR YELLOW (YELLOW); URINE GLUCOSE (UA) NEGATIVE (Normal)
[2019-03-06 20:59] LABS: PH,URINE 6.5 (5.0-8.0); URINE BLOOD SMALL (NEGATIVE); URINE LEUKOCYTE ESTERASE NEGATIVE Leu/uL (Negative); URINE PROTEIN NEGATIVE (NEGATIVE); URINE UROBILINOGEN 0.2 mg/dL (0.2-1.0)
[2019-03-06 21:08] LABS: OPIATES, UR POSITIVE (NEGATIVE)
[2019-03-06 23:24] VITALS: O2SAT 96
[2019-03-06] MEDS ORDERED: Aluminum Hydroxide/Magnesium Hydroxide Susp (30 mL) PO PRN (23:49)
--- NOTE | 2019-03-06 23:58 | PCM.BM ---
<Tomas Silva - Last Filed: 03/06/19 23:56> Treatment Plan Problems - Problems identified on initial assessmt Hopelessness/Helplessness Date Initiated: 03/06/19 Time Initiated: 23:30 Assessment reference: NA Status: Active Social Isolation Date Initiated: 03/06/19 Time Initiated: 23:30 Assessment reference: NA Status: Active Treatment assets and liabiliti Patient Assests: adapts well, cooperative, ADL independent, physically healthy, negotiates basic needs, cognitively intact Patient Liabilities: poor support system, substance abuse - Milieu Protocol Maintain good personal hygiene: daily Encourage regular showers, daily Remind patient to perform daily oral care, daily Assist patient to perform ADL's Conduct patient checks and document Observation sheet: Q15 minutes Maintain personal safety: every shift Educate patient to report safety concerns to staff, every shift Monitor environment for contraband/sharps Medication safety: Monitor for expected outcome, potential side effects: every shift, Assess barriers to learning: every shift, Assess readiness for medication education: every shift <Robert Kwon - Last Filed: 03/07/19 20:51> - Diagnosis (1) Major depressive disorder, recurrent, severe with psychotic features Status: Acute Interventions: 03/07/19 20:49 * Assess/adjust medications daily and /or as needed * See patient on an individual basis 7x/week to assess level of manic behaviors and stability * Discuss risks, benefits, side effects and alternatives of medications (2) Opioid use disorder, severe, dependence Status: Acute Interventions: 03/07/19 20: * Assess 7x/week regarding severity of withdrawal * Educate regarding risks, benefits, side effects and alternatives of medications * Use Motivational Interviewing for abstinence * Use CBT for relapse prevention * Medication management for withdrawal symptoms * Encourage medication assisted treatment (3) Sedative, hypnotic or anxiolytic use disorder, severe, dependence Status: Acute Interventions: 03/07/19 20:52 * Assess 7x/week regarding severity of withdrawal * Educate regarding risks, benefits, side effects and alternatives of medications * Use Motivational Interviewing for abstinence * Use CBT for relapse prevention * Medication management for withdrawal symptoms * Encourage medication assisted treatment (4) Alcohol use disorder, severe, dependence Status: Acute Interventions: 03/07/19 20:52 * Assess 7x/week regarding severity of withdrawal * Educate regarding risks, benefits, side effects and alternatives of medications * Use Motivational Interviewing for abstinence * Use CBT for relapse prevention * Medication management for withdrawal symptoms * Encourage medication assisted treatment <Deisy Babb Armand - Last Filed: 03/10/19 14:06> Family Contact Family involvement: Patient does not wish Family/SO involvement Family contact: Patient declines to allow family contact at present - Goals for Treatment Patient goals for treatment: "I want to go a methadone clinic." Discharge/Continuing Care - Education Needs Education Needs: Patient Medication, Patient Diagnosis/Disease Process, Patient Coping Skills, Patient Placement options, Patient Community resources - Discharge Discharge Criteria: Free of Suicidal thoughts, Free of agitation, Normal sleep pattern, Ability to care for self, No longer exhibiting s/s of withdrawal, Reduction of target symptoms - Treatment Team Participation Discussed with Family/SO: No Was Patient/Family/SO present at Treatment Team Meeting: Yes
--- NOTE | 2019-03-07 20:09 | PCM.PSYCH ---
Initial Psychiatric Evaluation - Initial Psychiatric Evaluation Chief Complaint (in patient's own words): I am here to detox from heroine. History of Present Illness and Precipitating Events: Pt is a 53 years old male who is currently homeless, and unemployed presented in the ED complaining of mood disturbances, daily living problems, suicidal ideations, and will try and from heroin. Patient was very uncooperative, refused to provide any information, was irritable. Most of the history was obtained from the old record. Patient has history of depression but noncompliant with treatment for last 6 months. According to history patient has a long history of using heroin and nolan zodiazepine. Patient was using 15 bags of heroine daily, sniffing and abusing 2-4 mg of Xanax daily. Patient became very depressed yesterday with suicidal ideations and plan to overdose on whole bottle of Xanax but instead he came to the ER and was admitted. Patient reports of depressed, and irritable mood. Reports feelings of hopelessness and helplessness and poor appetite. However he denies any auditory hallucinations, visual hallucinations or any delusions. Patient also reports withdrawal symptoms including nausea, vomiting, abdominal pain. Sometimes hear voices. Current Medications: Active Medications Generic Name Dose Route Start Last Admin Trade Name Freq PRN Reason Stop Dose Admin Al Hydrox/Mg Hydrox/Simethicone 30 ml 03/06/19 23:49 Maalox 30 Ml PO TID PRN Indigestion / Heartburn Clonidine HCl 0.1 mg 03/06/19 23:49 Catapres PO Q4 PRN COWS Score More or Equal to 5 Hydroxyzine HCl 50 mg 03/06/19 23:47 Atarax PO Q6H PRN Anxiety Ibuprofen 600 mg 03/06/19 23:49 Motrin Tab PO Q6 PRN Pain, moderate (4-7) Loperamide HCl 2 mg 03/06/19 23:49 Imodium PO Q8 PRN Diarrhea Methadone HCl 15 mg 03/08/19 10:00 Methadone PO 03/11/19 09:59 Q24H ROGER Taper Mirtazapine 15 mg 03/06/19 23:45 03/07/19 00:00 Remeron PO 15 mg HS ROGER Administration Ondansetron HCl 4 mg 03/06/19 23:49 Zofran Tab PO Q8 PRN Nausea/Vomiting Pneumococcal Polyvalent Vaccine 0.5 ml 03/10/19 10:00 Pneumovax 23 Vaccine IM 03/10/19 10:01 .ONCE ONE Trazodone HCl 100 mg 03/06/19 23:47 03/07/19 00:05 Desyrel PO 100 mg HS PRN Administration Insomnia Past Psychiatric History - Past Psychiatric History Previous Treatment History: Inpatient History of Abuse: None reported History of ETOH/Drug Use: See HPI History of Family Illness: None reported Pertinent Medical Hx (Current Medical&Sleep Prob, Allergies): Allergies Allergy/AdvReac Type Severity Reaction Status Date / Time No Known Allergies Allergy Verified 03/06/19 19:50 Gabapentin [Neurontin] 300 mg PO TID #90 cap 02/18/17 Sertraline [Zoloft] 100 mg PO DAILY #30 tab 02/18/17 ARIPiprazole [Abilify] 10 mg PO QPM #30 tab 08/16/17 Gabapentin [Neurontin] 300 mg PO TID #90 cap 08/16/17 QUEtiapine [Seroquel] 100 mg PO HS #30 tab 08/16/17 Sertraline [Zoloft] 100 mg PO DAILY #30 tab 08/16/17 traZODone [Desyrel] 100 mg PO HS PRN #30 tab 08/16/17 Review of Systems - Psychiatric Psychiatric: As Per HPI, Depression, Irritability, Suicidal Ideation Mental Status Examination - Personal Presentation Personal Presentation: Looks stated age - Affect Affect: Other (Irritable) - Motor Activity Motor Activity: Psychomotor Agitation - Reliability in Providing Information Reliability in Providing Information: Poor, due to altered mood - Speech Speech: Relevant - Mood Mood: Other (Irritable, angry) - Formal Thought Process Formal Thought Process: No Impairment - Hallucinations/Delusions Hallucinations: Other (None reported) Delusions: Other - Obsessions/Compulsions Obsessions: None Compulsions: None - Cognitive Functions Orientation: Person, Place, Situation, Time Sensorium: Alert Attention/Concentration: Attentive Abstract Thinking: [place] Estimate of Intelligence: Average Judgement: Intact, as evidence by: Insight regarding need for hospitalization Memory: Recent intact, as evidence by: Ability to recall events of the day, Remote intact, as evidenced by: Ability to recall historical events - Risk Risk: Withdrawal, Diminished functioning - Strength & Assets Inventory Strength & Assets Inventory: Other - Limitations Limitations: Other (Homeless) DSM 5 DX - DSM 5 DSM 5 Diagnosis: Major depressive disorder recurrent severe with psychotic features. Opioid withdrawal. Opioid use disorder severe. Cocaine use disorder severe. - Recommended/Plan of Treatment Treatment Recommendations and Plan of Treatment: Patient education. Supportive therapy. CBT for relapse prevention. [place] for abstinence. Will start methadone taper for opioid withdrawal symptoms. Other PRN medication. Medication for depression. Projected ELOS: 8-10 days - Smoking Cessation Smoking Cessation Initiated: No
--- NOTE | 2019-03-08 23:30 | PCM.PYCHPN ---
Psychiatric Progress Note - Psychiatric Progress Note Patient seen today, length of contact: 15-minute Patient Chief Complaint: I am still not feeling better. Problems Identified/Issues Discussed: Patient state, chart reviewed, case discussed with the staff. Issues related to illness and treatment were discussed with the patient and staff. Reported compliant with treatment with no adverse effects. Tolerating treatment very well. Patient refused to cooperate, refused to speak with the psychiatrist, continued to be irritable and isolative in his room. Denied any delusions, auditory or visual hallucinations, no suicidal ideations or homicidal ideations at the time of evaluation. Medical Problems: None reported Diagnostic Results: Reviewed Medication Change: No Medical Record Reviewed: Yes Mental Status Examination - Cognitive Function Orientation: Person, Place, Situation, Time Memory: Intact Attention: WNL Concentration: WNL Association: Loose Fund of Knowledge: WNL Decription of patient's judgement and insights: Poor - Mood Mood: Other (Irritable, angry) - Affect Affect: Other (Irritable) - Speech Speech: Loud - Formal Thought Process Formal Thought Process: No Impairment - Suicidal Ideation Suicidal Ideation: No - Homicidal Ideation Homicidal Ideation: No Goal/Treatment Plan - Goal/Treatment Plan Need for Continued Stay: Remain at risks for inpatient hospitalization, Discharge may exacerbated symptoms, Severe functional impairment Progress Toward Problem(s) and Goals/Treatment Plan: Patient education. Supportive therapy. CBT for relapse prevention. [place] for abstinence. Continue treatment as before. Estimated Date of D/C: 03/10/19 - Smoking Cessation Smoking Cessation Initiated: No
--- NOTE | 2019-03-09 17:03 | PCM.PYCHPN ---
Psychiatric Progress Note - Psychiatric Progress Note Patient seen today, length of contact: 15-minute Patient Chief Complaint: I am still not feeling better. I still have withdrawal symptoms. Problems Identified/Issues Discussed: Patient state, chart reviewed, case discussed with the staff. Issues related to illness and treatment were discussed with the patient and staff. Reported compliant with treatment with no adverse effects. Tolerating treatment very well. Patient reported not feeling better as still has withdrawal symptoms including shaking, abdominal cramps, nausea, body aches, headache. Patient was still isolative in his room and was partially cooperative. If patient continued having same behavior, will discharge patient tomorrow as patient is finishing his detox. Patient agreed with above. Denied any delusions, auditory or visual hallucinations, no suicidal ideations or homicidal ideations at the time of evaluation. Medical Problems: None reported Diagnostic Results: Reviewed DSM 5 Symptoms Update: Some improvement with treatment. Medication Change: No Medical Record Reviewed: Yes Mental Status Examination - Cognitive Function Orientation: Person, Place, Situation, Time Memory: Intact Attention: WNL Concentration: WNL Association: Loose Fund of Knowledge: WNL Decription of patient's judgement and insights: Poor - Mood Mood: Other (Irritable, angry) - Affect Affect: Other (Irritable) - Speech Speech: Appropriate - Formal Thought Process Formal Thought Process: No Impairment - Suicidal Ideation Suicidal Ideation: No - Homicidal Ideation Homicidal Ideation: No Goal/Treatment Plan - Goal/Treatment Plan Need for Continued Stay: Remain at risks for inpatient hospitalization, Discharge may exacerbated symptoms, Severe functional impairment Progress Toward Problem(s) and Goals/Treatment Plan: Patient education. Supportive therapy. CBT for relapse prevention. [place] for abstinence. Continue treatment as before. Estimated Date of D/C: 03/10/19 - Smoking Cessation Smoking Cessation Initiated: No
[2019-03-10 07:04] VITALS: RESP 20; TEMP 97.6
[2019-03-10 08:44] VITALS: BP 120/80; PULSE 64
--- NOTE | 2019-03-10 09:55 | PCM.PYCHDC ---
Mental Status Examination - Mental Status Examination Orientation: Person, Place, Situation, Time Memory: Intact Mood: Neutral Affect: Other (Appropriate) Speech: Appropriate Attention: WNL Concentration: WNL Association: WNL Fund of Knowledge: WNL Formal Thought Process: No Impairment Description of patient's judgement and insight: Poor Psychotic Thoughts and Behaviors: None Suicidal Ideation: No Current Homicidal Ideation?: No Discharge Summary - Discharge Note Reason for Hospitalization: Major depressive disorder recurrent severe with psychotic features. Opioid withdrawal. Opioid use disorder severe. Cocaine use disorder severe. Laboratory Data: Reviewed Consultations:: List each consultation separately and include: 1. Reason for request. 2. Findings. 3. Follow-up Summary of Hospital Course include:: 1. Description of specific treatment plan utilized for patients during their course of treatmen. 2. Summarize the time- course for resolution of acute symptoms and/or regressed behaviors. 3. Describe issues identified and worked on during hospitalization. 4. Describe medication utilized. 5. Describe medical problems identified and treated. 6. Reassessment of suicide risk Summary of Hospital Course: Pt is a 53 years old male who is currently homeless, and unemployed presented in the ED complaining of mood disturbances, daily living problems, suicidal ideations, and will try and from heroin. Patient was very uncooperative, refused to provide any information, was irritable. Most of the history was obtained from the old record. Patient has history of depression but noncompliant with treatment for last 6 months. According to history patient has a long history of using heroin and benzodiazepine. Patient was using 15 bags of heroine daily, sniffing and abusing 2-4 mg of Xanax daily. Patient became very depressed yesterday with suicidal ideations and plan to overdose on whole bottle of Xanax but instead he came to the ER and was admitted. Patient reports of depressed, and irritable mood. Reports feelings of hopelessness and helplessness and poor appetite. However he denies any auditory hallucinations, visual hallucinations or any delusions. Patient also reports withdrawal symptoms including nausea, vomiting, abdominal pain. Sometimes hear voices. During his stay in the hospital patient was started on methadone taper for opioid withdrawal symptoms. Patient was also started on the as needed medications. Patient was very uncooperative during his stay in the hospital, refused to speak with the psychiatrist even after frequent attempts every day. Patient was very uncooperative, just wanted to get methadone. Patient was staying in his room and was coming out only for methadone and food. Today patient finished his methadone taper. Patient had no withdrawal symptoms and was ready to discharge from the hospital. At the time of evaluation and discharge, patient was awake, alert and oriented x3, had no delusions, no auditory or visual hallucinations, no suicidal ideations or homicidal ideations. - Diagnosis (1) Major depressive disorder, recurrent, severe with psychotic features Status: Acute (2) Opioid use disorder, severe, dependence Status: Acute (3) Sedative, hypnotic or anxiolytic use disorder, severe, dependence Status: Acute (4) Alcohol use disorder, severe, dependence Status: Acute - Final Diagnosis (DSM 5) Condition upon Discharge: FAIR Disposition: HOME/ ROUTINE Follow-up Treatment Plan: Patient will go to [facility] for follow[facility] care [facility]. Prescriptions/Medication Reconciliation: Mirtazapine [Remeron] 15 mg PO HS #30 tab traZODone [Desyrel] 100 mg PO HS PRN #30 tab PRN Reason: Insomnia - Smoking Cessation Smoking Cessation Medication prescribed: No - Antipsychotic Medications Pt discharged on 2 or more routine antipsychotic medications: No
[2019-03-10] MEDS ORDERED: Pneumococcal 23-Valent Vaccine IM ONE (10:00)
== END 2019-03-10 14:16 | disposition home or self-care (01) | DRG 430 ==
LOC: C.ER 19:15 → C.5E 22:37
PROVIDERS: ADMIT Psychiatry & Neurology Psychiatry; ATTEND Psychiatry & Neurology Psychiatry
PROC: GZHZZZZ Group Psychotherapy (ICD-10-PCS; principal; 2019-03-06)
PROC: HZ2ZZZZ Detoxification Services for Substance Abuse Treatment (ICD-10-PCS; 2019-03-06)
PROC: HZ52ZZZ Individual Psychotherapy for Substance Abuse Treatment, Cognitive-Behavioral (ICD-10-PCS; 2019-03-06)
PROC: HZ59ZZZ Individual Psychotherapy for Substance Abuse Treatment, Supportive (ICD-10-PCS; 2019-03-06)
PROC: HZ56ZZZ Individual Psychotherapy for Substance Abuse Treatment, Psychoeducation (ICD-10-PCS; 2019-03-06)
PROC: HZ42ZZZ Group Counseling for Substance Abuse Treatment, Cognitive-Behavioral (ICD-10-PCS; 2019-03-06)
PROC: HZ46ZZZ Group Counseling for Substance Abuse Treatment, Psychoeducation (ICD-10-PCS; 2019-03-06)
PROC: GZ58ZZZ Individual Psychotherapy, Cognitive-Behavioral (ICD-10-PCS; 2019-03-06)
PROC: GZ56ZZZ Individual Psychotherapy, Supportive (ICD-10-PCS; 2019-03-06)
DX: F33.3 Major depressive disorder, recurrent, severe with psychotic symptoms (principal); F11.23 Opioid dependence with withdrawal; F13.20 Sedative, hypnotic or anxiolytic dependence, uncomplicated; F14.20 Cocaine dependence, uncomplicated; F10.20 Alcohol dependence, uncomplicated; Z59.0 Homelessness; R45.851 Suicidal ideations; Z91.19 Patient's noncompliance with other medical treatment and regimen; Z87.891 Personal history of nicotine dependence; F41.9 Anxiety disorder, unspecified; G47.00 Insomnia, unspecified

== ENCOUNTER 2019-04-13 12:30 | Inpatient (IN) | payer MEDICAID ==
[2019-04-13 12:30] VITALS: BMI 28.1
[2019-04-13 13:45] LABS: BASO # 0.1 K/uL (0.0-0.2); BASO % 0.7 % (0.0-2.0); EOS # 0.1 K/uL (0.0-0.7); EOS % 1.2 % (0.0-4.0); HEMOGLOBIN 13.4 g/dL (12.0-18.0); LYMPH % 14.1 % (20.0-40.0); MEAN CELL VOLUME 91.4 fL (80.0-94.0); MEAN CORPUSCULAR HEMOGLOBIN 31.3 pg (27.0-31.0); MEAN CORPUSCULAR HGB CONC 34.3 g/dL (33.0-37.0); MEAN PLATELET VOLUME 7.6 fL (7.2-11.7); MONO # 0.4 K/uL (0.0-0.8); MONO % 4.9 % (0.0-10.0); NEUT # 5.7 K/uL (1.8-7.0); NEUT % 79.1 % (50.0-75.0); RBC 4.29 Mil/uL (4.40-5.90); RED CELL DISTRIBUTION WIDTH 13.7 % (11.5-14.5); WHITE BLOOD COUNT 7.2 K/uL (4.8-10.8)
[2019-04-13 13:56] LABS: URINE BILIRUBIN NEGATIVE (NEGATIVE); URINE CLARITY Clear (Clear); URINE COLOR Yellow (YELLOW); URINE GLUCOSE (UA) NORMAL (Normal); URINE LEUKOCYTE ESTERASE NEG Leu/uL (Negative); URINE PROTEIN NEGATIVE (NEGATIVE); URINE UROBILINOGEN NORMAL mg/dL (0.2-1.0)
[2019-04-13 13:59] LABS: URINE BLOOD 1+ (NEGATIVE)
[2019-04-13 14:07] LABS: ALB/GLOB RATIO 1.7 (1.0-2.1); ALBUMIN 4.4 g/dL (3.5-5.0); ALT/SGPT 22 U/L (21-72); AST/SGOT 39 U/L (17-59); BLOOD UREA NITROGEN 11 mg/dL (9-20); CALCIUM 9.3 mg/dl (8.6-10.4); GFR NON-AFRICAN AMERICAN > 60
[2019-04-13 14:15] LABS: BARBITURATES, UR NEGATIVE (NEGATIVE); BENZODIAZEPINES, UR NEGATIVE (NEGATIVE); PHENCYCLIDINE, UR NEGATIVE (NEGATIVE)
--- NOTE | 2019-04-13 14:39 | C.PDOC ---
History Of Present Illness 53 year old male, with a PMHx of chronic depression and alcohol abuse, who presents to the ED c/o feeing depressed and SI. Patient admits to using heroin and alcohol 1 day ago. He denies any HI or hallucinations. Time Seen by Provider: 04/13/19 13:16 Chief Complaint (Nursing): Psychiatric Evaluation History Per: Patient History/Exam Limitations: no limitations Current Symptoms Are (Timing): Still Present Suicide/Self Injury Attempted (Context): None Associated Symptoms: Depression Recent travel outside of the [place]: No Additional History Per: Patient Past Medical History Reviewed: Historical Data, Nursing Documentation, Vital Signs Vital Signs: Last Vital Signs Temp 97.4 F L 04/13/19 12:33 Pulse 64 04/13/19 12:33 Resp 16 04/13/19 12:33 BP 145/87 04/13/19 12:33 Pulse Ox 95 04/13/19 12:33 Primary Care Provider: FAMILY PROVIDER,NO - Medical History PMH: Anxiety, Depression Denies: Diabetes, Hepatitis, HIV, HTN, Chronic Kidney Disease, Seizures, Sexually Transmitted Disease Surgical History: No Surg Hx - [facility] Procedures DETOXIFICATION SERVICES FOR SUBSTANCE ABUSE TREATMENT (03/06/19) GROUP CONSULTANT NURSE FOR SUBSTANCE ABUSE TREATMENT, PSYCHOEDUCATION (03/06/19) GROUP CONSULTANT NURSE FOR SUBSTANCE ABUSE, COGNITIVE BEHAVIORAL (03/06/19) GROUP PSYCHOTHERAPY (03/06/19) INDIV PSYCHOTHERAPY FOR SUBSTANCE ABUSE TREATMENT, SUPPORT (03/06/19) INDIV PSYCHOTHERAPY FOR SUBSTANCE ABUSE, COGNITIV BEHAVIORAL (03/06/19) INDIV PSYCHOTHERAPY FOR SUBSTANCE ABUSE, PSYCHOEDUCATION (03/06/19) INDIVIDUAL PSYCHOTHERAPY, COGNITIVE-BEHAVIORAL (03/06/19) INDIVIDUAL PSYCHOTHERAPY, SUPPORTIVE (03/06/19) MEDICATION MANAGEMENT (08/09/17) Family History: States: Unknown Family Hx - Social History Hx Tobacco Use: Yes Hx Alcohol Use: Yes Hx Substance Use: Yes - Immunization History Hx Tetanus Toxoid Vaccination: No Hx Influenza Vaccination: No Hx Pneumococcal Vaccination: No Review Of Systems Cardiovascular: Negative for: Chest Pain Respiratory: Negative for: Shortness of Breath Psych: Positive for: Suicidal ideation. Negative for: Other (HI or hallucinations) Physical Exam - Physical Exam Appears: Non-toxic, No Acute Distress, Other (tall, thin male. flat affect, cooperatice ) Skin: Warm, Dry Head: Atraumatic, Normacephalic Eye(s): bilateral: Normal Inspection Oral Mucosa: Moist Neck: Normal ROM, Supple Chest: Symmetrical, No Deformity Cardiovascular: Rhythm Regular, No Murmur Respiratory: Normal Breath Sounds, No Rales, No Rhonchi, No Wheezing Gastrointestinal/Abdominal: Soft, No Tenderness Neurological/Psych: Oriented x3 ED Course And Treatment - Laboratory Results Result Diagrams: 04/13/19 13:39 04/13/19 13:39 Lab Results: Total Bilirubin 0.5 mg/dL (0.2-1.3) 04/13/19 13:39 AST 39 U/L (17-59) 04/13/19 13:39 ALT 22 U/L (21-72) 04/13/19 13:39 Alkaline Phosphatase 74 U/L (38-126) 04/13/19 13:39 Total Protein 7.0 g/dL (6.3-8.3) 04/13/19 13:39 Albumin 4.4 g/dL (3.5-5.0) 04/13/19 13:39 Globulin 2.6 gm/dL (2.2-3.9) 04/13/19 13:39 Albumin/Globulin Ratio 1.7 (1.0-2.1) 04/13/19 13:39 Urine Color Yellow (YELLOW) 04/13/19 13:39 Urine Clarity Clear (Clear) 04/13/19 13:39 Urine pH 6.0 (5.0-8.0) 04/13/19 13:39 Ur Specific [place] 1.006 (1.003-1.030) 04/13/19 13:39 Urine Protein Negative mg/dL (NEGATIVE) 04/13/19 13:39 Urine Glucose (UA) Normal mg/dL (Normal) 04/13/19 13:39 Urine Ketones Negative mg/dL (NEGATIVE) 04/13/19 13:39 Urine Blood 1+ (NEGATIVE) H 04/13/19 13:39 Urine Nitrate Negative (NEGATIVE) 04/13/19 13:39 Urine Bilirubin Negative (NEGATIVE) 04/13/19 13:39 Urine Urobilinogen Normal mg/dL (0.2-1.0) 04/13/19 13:39 Ur Leukocyte Esterase Neg [place]/uL (Negative) 04/13/19 13:39 Urine WBC (Auto) < 1 /hpf (0-5) 04/13/19 13:39 Urine RBC (Auto) 5 /hpf (0-3) H 04/13/19 13:39 Lab Interpretation: Normal O2 Sat by Pulse Oximetry: 95 (on RA) Pulse Ox Interpretation: Normal Reevaluation Time: 14:40 Medical Decision Making Medical Decision Making: Plan: Tylenol 650mg PO Maalox 30ml PO Catapres 0.1mg PO Bentyl 10mg PO Neurontin 300mg PO Atarax 25mg PO Motrin 600mg PO Imodium 2mg PO Methadone 20mg PO Zofran 4mg PO Sudafed 60mg PO Seroquel 100mg PO Pneumococcal Vaccine Disposition Doctor Will See Patient In The: Hospital Counseled Patient/Family Regarding: Studies Performed, Diagnosis - Disposition Disposition: HOSPITALIZED Disposition Time: 14:41 Condition: GOOD - Clinical Impression Clinical Impression: Major depression, Alcohol abuse - Scribe Statement The provider has reviewed the documentation as recorded by the Mook Soriano All medical record entries made by the Mook were at my direction and personally dictated by me. I have reviewed the chart and agree that the record accurately reflects my personal performance of the history, physical exam, medical decision making, and the department course for this patient. I have also personally directed, reviewed, and agree with the discharge instructions and disposition.
[2019-04-13 15:09] LABS: OPIATES, UR POSITIVE (NEGATIVE)
--- NOTE | 2019-04-13 15:17 | PCM.BM ---
<Heidi Concepcionn - Last Filed: 04/13/19 15:16> Treatment Plan Problems - Problems identified on initial assessmt Suicidal Ideation Date Initiated: 04/13/19 Time Initiated: 15:17 Assessment reference: NA Status: Monitor Depression Date Initiated: 04/13/19 Time Initiated: 15:17 Assessment reference: NA Status: Active Defensive Coping Date Initiated: 04/13/19 Time Initiated: 15:17 Assessment reference: NA Status: Active Treatment assets and liabiliti Patient Assests: adapts well, cooperative, ADL independent, physically healthy, negotiates basic needs, cognitively intact Patient Liabilities: financial problems, poor support system, substance abuse - Milieu Protocol Maintain good personal hygiene: daily Encourage regular showers, daily Remind patient to perform daily oral care, daily Assist patient to perform ADL's Conduct patient checks and document Observation sheet: Q15 minutes Maintain personal safety: every shift Educate patient to report safety concerns to staff, every shift Monitor environment for contraband/sharps Medication safety: Monitor for expected outcome, potential side effects: every shift, Assess barriers to learning: every shift, Assess readiness for medication education: every shift <Kitty Fountain - Last Filed: 04/14/19 11:13> - Diagnosis (1) Major depression Status: Acute Interventions: 04/14/19 11:13 * Assess/adjust medications daily and /or as needed * See patient on an individual basis 7x/week to assess symptoms of depression * Monitor for side effects & effectiveness of medications * (2) Opioid use disorder Status: Acute Interventions: 04/14/19 11:13 * Assess 7x/week regarding severity of withdrawal * Educate regarding risks, benefits, side effects and alternatives of medications * Use Motivational Interviewing for abstinence * Use CBT for relapse prevention * Medication management for withdrawal symptoms * Encourage medication assisted treatment * <Deisy Babb - Last Filed: 04/14/19 14:41> Family Contact Family involvement: Patient does not wish Family/SO involvement Family contact: Patient declines to allow family contact at present - Goals for Treatment Patient goals for treatment: "I do not know what type of treatment I want." Discharge/Continuing Care - Education Needs Education Needs: Patient Medication, Patient Diagnosis/Disease Process, Patient Coping Skills, Patient Placement options, Patient Community resources - Discharge Discharge Criteria: Free of Suicidal thoughts, Normal sleep pattern, Ability to care for self, No longer exhibiting s/s of withdrawal, Reduction of target symptoms Discharge to:: Retirement - Treatment Team Participation Discussed with Family/SO: No Was Patient/Family/SO present at Treatment Team Meeting: Yes
[2019-04-13] MEDS ORDERED: Aluminum Hydroxide/Magnesium Hydroxide Susp (30 mL) PO PRN (16:44)
[2019-04-13 16:55] VITALS: O2SAT 95
--- NOTE | 2019-04-14 10:05 | PCM.PSYCH ---
Initial Psychiatric Evaluation - Initial Psychiatric Evaluation Type of Admission: Voluntary Legal Status: Capacity Chief Complaint (in patient's own words): I was feeling depressed and suicidal. History of Present Illness and Precipitating Events: Patient is 53 y/o male who is currently unemployed and homeless, came to the [facility] with depressed mood and suicidal ideation. Patient has history of multiple inpatient psychiatric hospitalizations. He was just discharged from [facility] 5 E. last month. As per the patient soon after discharge from the hospital he stopped taking the medication and relapsed to heroin. He reports that he is abusing 15 to 20 bags of heroin daily along with some cocaine. Yesterday he abused almost 15 bags, became increasingly depressed and came to the hospital to get help. He expresses depressed mood, feelings of hopelessness, helplessness, and anxiety. He reports withdrawal symptoms from heroin including nausea, cramps, joint pains, hot and cold sweats and headaches. However he denies any auditory or visual hallucinations or any paranoia. PMH: None reported Current Medications: Active Medications Generic Name Dose Route Start Last Admin Trade Name Vaishali PRN Reason Stop Dose Admin Acetaminophen 650 mg 04/13/19 16:44 Tylenol 325mg Tab PO Q4H PRN Fever greater than 101 F Al Hydrox/Mg Hydrox/Simethicone 30 ml 04/13/19 16:44 Maalox 30 Ml PO TID PRN Indigestion / Heartburn Clonidine HCl 0.1 mg 04/13/19 16:44 Catapres PO Q4 PRN COWS Score More or Equal to 5 Dicyclomine HCl 10 mg 04/13/19 16:44 Bentyl PO Q6 PRN Muscle spasm Gabapentin 300 mg 04/13/19 18:00 04/14/19 09:16 Neurontin PO 300 mg TID ROGER Administration Hydroxyzine HCl 25 mg 04/13/19 16:46 Atarax PO Q6 PRN Agitation Ibuprofen 600 mg 04/13/19 16:44 Motrin Tab PO Q6 PRN Pain, moderate (4-7) Loperamide HCl 2 mg 04/13/19 16:44 Imodium PO Q8 PRN Diarrhea Methadone HCl 20 mg 04/14/19 10:00 04/14/19 09:16 Methadone PO 04/18/19 09:59 20 mg Q24H ROGER Administration Taper Ondansetron HCl 4 mg 04/13/19 16:44 04/13/19 17:08 Zofran Tab PO 4 mg Q8 PRN Administration Nausea/Vomiting Pneumococcal Polyvalent Vaccine 0.5 ml 04/16/19 10:00 Pneumovax 23 Vaccine IM 04/16/19 10:01 .ONCE ONE Pseudoephedrine HCl 60 mg 04/13/19 16:44 Sudafed Tab PO QID PRN Nasal/Sinus Congestion Quetiapine Fumarate 100 mg 04/13/19 22:00 04/13/19 21:18 Seroquel PO Not Given HS [facility] Past Psychiatric History - Past Psychiatric History Previous Treatment History: Inpatient Pertinent Medical Hx (Current Medical&Sleep Prob, Allergies): Allergies Allergy/AdvReac Type Severity Reaction Status Date / Time No Known Allergies Allergy Verified 04/13/19 12:36 Gabapentin [Neurontin] 300 mg PO TID #90 cap 02/18/17 Sertraline [Zoloft] 100 mg PO DAILY #30 tab 02/18/17 ARIPiprazole [Abilify] 10 mg PO QPM #30 tab 08/16/17 QUEtiapine [Seroquel] 100 mg PO HS #30 tab 08/16/17 Mirtazapine [Remeron] 15 mg PO HS #30 tab 03/10/19 traZODone [Desyrel] 100 mg PO HS PRN #30 tab 03/10/19 Review of Systems - Review of Systems All systems: reviewed and no additional remarkable complaints except - Psychiatric Psychiatric: Anxiety, Depression, Irritability, Suicidal Ideation Mental Status Examination - Personal Presentation Personal Presentation: Looks stated age - Affect Affect: Constricted, Depressed - Motor Activity Motor Activity: Calm - Reliability in Providing Information Reliability in Providing Information: Good - Speech Speech: Organized - Mood Mood: Depressed, Anxious - Formal Thought Process Formal Thought Process: No Impairment - Obsessions/Compulsions Obsessions: No Compulsions: No - Cognitive Functions Orientation: Person, Place, Situation, Time Sensorium: Alert Attention/Concentration: Attentive Abstract Thinking: [place] Estimate of Intelligence: Below average Judgement: Imparied, as evidence by: Poor judgement, Imparied, as evidence by: Lack of insight into illness - Risk Risk: Suicidal, Withdrawal, Diminished functioning - Limitations Limitations: Living alone DSM 5 DX - DSM 5 DSM 5 Diagnosis: Major depressive disorder recurrent severe without psychotic features Opioid use disorder severe Opioid withdrawal Cocaine use disorder severe - Recommended/Plan of Treatment Treatment Recommendations and Plan of Treatment: Major depressive disorder recurrent severe without psychotic features Opioid use disorder severe Opioid withdrawal Cocaine use disorder severe CBT Psychoeducation Supportive therapy and group therapy Methadone taper Withdrawal medications including Zofran/Imodium/clonidine Seroquel for insomnia Hydroxyzine for anxiety Wellbutrin for depression Neurontin for augmentation - Smoking Cessation Smoking Cessation Initiated: No
--- NOTE | 2019-04-15 20:06 | PCM.PYCHPN ---
Psychiatric Progress Note - Psychiatric Progress Note Patient seen today, length of contact: 15 Mins Problems Identified/Issues Discussed: The pt is seen, chart reviewed, case is discussed with staff. The pt is compliant with medications and reports no side-effects. Symptoms are improving but needs more time to stabilize and to avoid relapse. Pt attends groups and activities. Support given, psycho-education provided. After care discussed. Medication Change: Yes Medical Record Reviewed: Yes Mental Status Examination - Cognitive Function Orientation: Person, Place, Situation, Time Attention: WNL Concentration: WNL - Mood Mood: Depressed, Anxious - Affect Affect: Constricted, Depressed - Formal Thought Process Formal Thought Process: No Impairment - Suicidal Ideation Suicidal Ideation: No - Homicidal Ideation Homicidal Ideation: No Goal/Treatment Plan - Goal/Treatment Plan Progress Toward Problem(s) and Goals/Treatment Plan: Continue medications Support and psychoeducation daily Attend groups and activities daily Individual therapy After care planning by KALINA and the team - Smoking Cessation Smoking Cessation Initiated: No
[2019-04-16 09:53] VITALS: RESP 20
[2019-04-16] MEDS ORDERED: Pneumococcal 23-Valent Vaccine IM ONE (10:00)
[2019-04-17 09:52] VITALS: BP 114/82; PULSE 92; TEMP 97.9
--- NOTE | 2019-04-17 15:47 | PCM.PYCHDC ---
Mental Status Examination - Mental Status Examination Orientation: Person, Place, Situation, Time Memory: Intact Mood: Neutral Speech: Appropriate Attention: WNL Concentration: WNL Association: WNL Fund of Knowledge: WNL Formal Thought Process: No Impairment Suicidal Ideation: No Current Homicidal Ideation?: No Discharge Summary - Discharge Note Consultations:: List each consultation separately and include: 1. Reason for request. 2. Findings. 3. Follow-up Summary of Hospital Course include:: 1. Description of specific treatment plan utilized for patients during their course of treatmen. 2. Summarize the time- course for resolution of acute symptoms and/or regressed behaviors. 3. Describe issues identified and worked on during hospitalization. 4. Describe medication utilized. 5. Describe medical problems identified and treated. 6. Reassessment of suicide risk Summary of Hospital Course: The pt was admitted and started on treatment with psychotherapy, support, psychoeducation and medications. All the risks and benefits of medications are discussed and the patient understood and agreed. ND and CBT used. The pt attended groups and activities, as well as milieu therapy. The pt improved with the treatments provided. After care discussed with the patient. - Diagnosis (1) Major depressive disorder, severe Status: Acute - Final Diagnosis (DSM 5) Condition upon Discharge: GOOD Disposition: HOME/ ROUTINE Follow-up Treatment Plan: Continue below medications after discharge : Wellbutrin, Seroquel and Gabapentin Follow after care plan as discussed. Use relapse prevention skills Return to ER or call 911 if suicidal, homicidal or symptoms relapse. Stay away from stress, alcohol and drugs. See primary doctor regularly and get labs. - Smoking Cessation Smoking Cessation Medication prescribed: No - Antipsychotic Medications Pt discharged on 2 or more routine antipsychotic medications: Yes
== END 2019-04-17 12:17 | disposition home or self-care (01) | DRG 430 ==
LOC: C.ER 12:30 → C.5E 14:38
PROVIDERS: ADMIT Psychiatry & Neurology Psychiatry; ATTEND Psychiatry & Neurology Psychiatry
PROC: GZ56ZZZ Individual Psychotherapy, Supportive (ICD-10-PCS; principal; 2019-04-13)
DX: F33.2 Major depressive disorder, recurrent severe without psychotic features (principal); F11.23 Opioid dependence with withdrawal; F14.10 Cocaine abuse, uncomplicated; F41.9 Anxiety disorder, unspecified; R45.851 Suicidal ideations; Z59.0 Homelessness; Z87.891 Personal history of nicotine dependence; F10.10 Alcohol abuse, uncomplicated